=== PATIENT | female | born 1985 | race Caucasian/White ===

== ENCOUNTER 2017-09-05 09:40 | Emergency (ER) | payer OTHER, BC ==
[~2017-09-05] VITALS: Ht 160 cm; Wt 113.4 kg
[~2017-09-05 09:40] MED LIST: ACET-2154 PO; DM H1CAP4 PO; GUAI600T53 PO
--- NOTE | 2017-09-05 09:58 | NUR ---
DR REYNA AT THE BEDSIDE FOR MSE.
[2017-09-05 10:55] VITALS: BP 137/83
--- NOTE | 2017-09-05 10:59 | NUR ---
Patient discharged to home in stable conditon. Written and verbal after care instructions given. Patient verbalizes understanding of instructions.
== END 2017-09-05 11:00 | disposition home or self-care (01) ==
LOC: ER 09:40
DX: S93.402A Sprain of unspecified ligament of left ankle, initial encounter (principal); Z79.899 Other long term (current) drug therapy; X50.1XXA Overexertion from prolonged static or awkward postures, initial encounter; Y93.89 Activity, other specified; Y92.89 Other specified places as the place of occurrence of the external cause; Y99.8 Other external cause status
CPT/HCPCS: 73610; 73630; A4663